=== PATIENT | female | born 1990 | race Caucasian/White ===

== ENCOUNTER 2018-05-12 15:48 | Emergency (ER) | payer BC, OTHER ==
--- NOTE | 2018-05-12 16:24 | UC ---
Complaint Female HPI - HPI Summary HPI Summary: 27 y/o female presents to the urgent care c/o b/L pelvic pain w/ urination, LF> RT since this morning. Pt reports she went to the bathroom and urinated and she felt a sudden onset of pelvic pain. Pt w/ PMHX of endometriosis which has been controlled w/ OCP. LMP: 2 years ago due to the OCP. Pt reports about 2 weeks ago she had mild pain and burning on urination, but then it resolved w/ increase hydration. Pain now is 7/10 associated w/ mild chills, pressure and throbbing in character, worse after urination. She took an Ibuprofen PO 800mg around 0900AM which alleviated the pain for a few hrs. Pt has Hx of anxiety. Pt has a mild vaginal discharge, but she thinks it is her normal. Pt denies lower back pain, flank pain, fever, SOB, chest pain, N/V/D. Pt denies Hx of kidney stones or ovarian cysts or STD's. - History Of Current Complaint Chief Complaint: UCGU Stated Complaint: URINARY COMPLAINT Time Seen by Provider: 05/12/18 16:22 Hx Obtained From: Patient Hx Last Menstrual Period: 1-2 YEARS ?: No Onset/Duration: Gradual Onset, Lasting Hours - 10 hrs Timing: Constant Severity Initially: Moderate Severity Currently: Moderate Pain Intensity: 8 Pain Scale Used: 0-10 Numeric Character: Cramping Aggravating Factor(s): Urination Alleviating Factor(s): Meds - Ibuprofen 800mg PO around 0900Am Associated Signs And Symptoms: Negative: Fever, Back Pain, Vaginal Discharge, Nausea, Vomiting(# Of Episodes =), Genital Blisters Related Hx: - 1, Para - 0 - Risk Factors Ectopic Risk Factor: Negative Ovarian Torsion Risk Factor: Negative - Allergies/Home Medications Allergies/Adverse Reactions: Allergies Allergy/AdvReac Type Severity Reaction Status Date / Time azithromycin Allergy Severe Rash Verified 05/12/18 16:18 doxycycline Allergy Severe UNABLE TO Verified 05/12/18 16:18 WALK, RASH PMH/Surg Hx/FS Hx/Imm Hx Previously Healthy: Yes Other GI/ History: Endometriosis Psychological History: Anxiety - Surgical History Surgical History: Yes Surgery Procedure, Year, and Place: Umbilical hernia repair mesh removed . Umbilical hernia repair w/ mesh [facility]. Umbilical hernia repair w/ [id number]-[facility] - Family History Known Family History: Positive: Hypertension - Social History Occupation: Employed Full-time Lives: With Family Alcohol Use: Weekly Alcohol Amount: 1-2 WEEKENDS Substance Use Type: Marijuana Substance Use Comment - Amount & Last Used: MARIJUANA OCCASIONALLY Smoking Status (MU): Former Smoker Amount Used/How Often: 1/2-1 PPD X 7 YEARS Have You Smoked in the Last Year: Yes When Did the Patient Quit Smoking/Using Tobacco: 09/2013 Review of Systems All Other Systems Reviewed And Are Negative: Yes Constitutional: Positive: Negative Skin: Positive: Negative Eyes: Positive: Negative ENT: Positive: Negative Respiratory: Positive: Negative Cardiovascular: Positive: Negative Gastrointestinal: Positive: Negative Genitourinary: Positive: Dysuria, Frequency, Other - B/L pelvic pain. Negative : Vaginal/Penile Discharge, Abnormal Bleeding Motor: Positive: Negative Neurovascular: Positive: Negative Musculoskeletal: Positive: Negative Neurological: Positive: Negative Psychological: Positive: Negative Is Patient Immunocompromised?: No Physical Exam - Summary Physical Exam Summary: Vital signs: reviewed General: well developed, well nourished female sitting in the examining table w/o mild pain distress. Head: Normocephalic, no lesions. Eyes: PERRLA, EOM's full, conjunctiva clear, fundi grossly normal. Ears: EAC's clear, TM's normal. Nose: Mucosa normal, no obstruction. Throat: Clear, no exudates, no lesions. Neck: Supple, no masses, no thyromegaly, no bruits. Chest: Lungs clear, no rales, no rhonchi, no wheezes. Heart: RR, no murmurs, no rubs, no gallops. Abdomen Description: Positive: Nontender, Abd: Flat with no distention. No surface trauma, scars, incisions. hyperactive bowel sounds present in all four quadrants. No tenderness, guarding, rigidity to palpation. No masses palpated, no pulsation in epigastric area. No organomegaly. Negative [place] signs. No periumbilical tenderness. No rebound in the lower quadrants. NT over McBurneys point. Left side suprapubic tenderness with no distension. Good femoral pulses bilaterally. No hernia noted. No CVAT bilaterally. Pelvic: I was assisted by Nurse Palacios. External genitalia within normal limits. There is no lesions there is no masses noted. Speculum exam: The vaginal bell are within normal limits w/ cottage cheese and bloody vaginal discharge, no the lesions or rashes. The cervix is closed with mild bleeding. no lesions or masses. There is no CMT's, and left adnexal tenderness and no adnexal masses. Sample sent to Lab for G/C and Affirm panel. Rectal: No lesions, no hemorrhoids, Back: Normal curvature, no tenderness. Extremities: FROM, no deformities, no edema, no erythema. Neuro: Physiological, no localizing findings. Skin: Normal, no rashes, no lesions noted. Triage Information Reviewed: Yes Vital Signs: Initial Vital Signs Temp 99.2 F 05/12/18 16:09 Pulse 110 05/12/18 16:09 Resp 18 05/12/18 16:09 BP 143/85 05/12/18 16:09 Pulse Ox 98 05/12/18 16:09 Complaint Female Dx - Course Course Of Treatment: 27 y/o female presents to the urgent care c/o b/L pelvic pain w/ urination, LF> RT since this morning. Pt reports she went to the bathroom and urinated and she felt a sudden onset of pelvic pain. Pt w/ PMHX of endometriosis which has been controlled w/ OCP. LMP: 2 years ago due to the OCP. Pt reports about 2 weeks ago she had mild pain and burning on urination, but then it resolved w/ increase hydration. Pain now is 7/10 associated w/ mild chills, pressure and throbbing in character, worse after urination. She took an Ibuprofen PO 800mg around 0900AM which alleviated the pain for a few hrs. Pt has Hx of anxiety. Pt has a mild vaginal discharge, but she thinks it is her normal. Pt denies lower back pain, flank pain, fever, SOB, chest pain, N/V/D. Pt denies Hx of kidney stones or ovarian cysts or STD's.Hx obtained. Pt is hemodynamically stable, A& OX3. Pt w/ Left side suprapubic tenderness with no distension and No B/L CVA tenderness on examination. UA: + trace blood. test:negative. Speculum exam: The vaginal bell are within normal limits w/ cottage cheese bloody vaginal discharge, no lesions or rashes. The cervix is closed with mild surrounding erythema, no masses. There is no CMT's, but positive left side andnexal tenderness, no adnexal masses. Sample sent to Lab for G/C, and affirm. Possible Vulvovaginal CPT will be notified of results. Pelvic/ transvaginal US ordered: impression: IMPRESSION: 2.5 CM COMPLEX LEFT OVARIAN CYST AND SMALL AMOUNT OF FREE INTRAPERITONEAL, FLUID. RECOMMEND A FOLLOW-UP PELVIC ULTRASOUND IN 2 MONTHS TIME as per radiologist. Abdominal/pelvic CT ordered to r/o kidney stone or other abdominal abnormality, Impression: Limited noncontrast CT, same left ovarian cyst observed and also small hypodense lesion in the left hepatic lobe not seen in prior study, possible a cyst. Pt given at the clinic Ibuprofen PO by nurse. Pt tolerated well medication and pain decrease. Pt Rx Fluconazole PO, [place] PO and Ibuprofen PO to alleviate symptoms. Results explained to patient and strongly recommended to f/u w/ [facility] Diane in 2-3 days for further management on her Ovarian cyst and Endometriosis. However if pelvic pain worsen despite pain medication to immediately go to the ER for further management. D/c instructions explained. Pt understood and agreed w/ plan of care. Pt left the clinic hemodynamically stabel , A&OX3 - Differential Dx/Diagnosis Differential Diagnosis/HQI/PQRI: Cervicitis, Pelvic Inflammatory Disease, , Renal Colic, Sexually Transmitted Disease, Ureteral Stone, Urinary Tract Infection Provider Diagnosis: Acute pelvic pain, Screening for STD (sexually transmitted disease), Vulvovaginal candidiasis, Ovarian cyst, left, Elevated BP without diagnosis of hypertension Discharge - Sign-Out/Discharge Documenting (check all that apply): Patient Departure - d/c home All imaging exams completed and their final reports reviewed: Yes - Discharge Plan Condition: Stable Disposition: HOME Prescriptions: Fluconazole 150 MG TAB* [Diflucan 150 MG TAB*] 150 mg PO ONCE #1 tablet HYDROcodone/ACETAMIN 5-325 MG* [[place] 5-325 TAB*] 1 tab PO Q8H PRN #9 tab MDD 1g /4hrs-4g/day PRN Reason: Pain Ibuprofen TAB* [Motrin TAB* 800 MG] 800 mg PO Q6H PRN #30 tab PRN Reason: Pain Patient Education Materials: Ovarian Cyst (ED), Yeast Infection (ED) Referrals: Dulce Bhat NP [Primary Care Provider] - 2 Days Ras Diane MD [Medical Doctor] - 2 Days Additional Instructions: 1-Please f/u with [facility] Diane in 2-3 days for further evaluation and treatment on your Left Ovarian cyst and endometriosis. 2- Please take Kal[place] PO as directed or Ibuprofen PO to alleviate pelvic pain since Hx of Endometriosis 3- Please take the fluconazole PO as directed to alleviate vaginal discharge. Please do not take the [place] until tomorrow since there is an interaction w/ the fluconazole. 4- Specimen were sent to lab, if anything abnormal you will receive a call from us for further treatment. 5-If pelvic pain worsen despite taken pain medications please go immediately to the ER for further management 6-Your BP is elevated today. please decrease salt in your diet, monitor BP and if it continues to be elevated please f/u with your PCP for further management. - Billing Disposition and Condition Condition: STABLE Disposition: Home
[2018-05-12] MEDS ORDERED: Ibuprofen TAB* 400 MG PO ONE (16:44)
[2018-05-12 18:14] VITALS: BP 137/78
[2018-05-14 13:16] LABS: Neisseria gonorrhoeae (GC) RNA Negative (Negative)
[2018-05-14 13:36] LABS: Trichomonas vaginalis Result Negative (Negative)
--- NOTE | 2018-05-14 16:25 | UC ---
- Progress Note Progress Note: 05/14/2018 Pelvic swab samples: GC/chlam: negative, T. vaginalis: negative, Negative Jade, negative [place] No change Archana Hutchins PA-C Course/Dx - Diagnoses Provider Diagnoses: Acute pelvic pain, Screening for STD (sexually transmitted disease), Vulvovaginal candidiasis, Ovarian cyst, left, Elevated BP without diagnosis of hypertension Discharge - Sign-Out/Discharge Documenting (check all that apply): Post-Discharge Follow Up All imaging exams completed and their final reports reviewed: Yes - Discharge Plan Condition: Stable Disposition: HOME Prescriptions: Fluconazole 150 MG TAB* [Diflucan 150 MG TAB*] 150 mg PO ONCE #1 tablet HYDROcodone/ACETAMIN 5-325 MG* [[place] 5-325 TAB*] 1 tab PO Q8H PRN #9 tab MDD 1g /4hrs-4g/day PRN Reason: Pain Ibuprofen TAB* [Motrin TAB* 800 MG] 800 mg PO Q6H PRN #30 tab PRN Reason: Pain Patient Education Materials: Ovarian Cyst (ED), Yeast Infection (ED) Referrals: Dulce Bhat NP [Primary Care Provider] - 2 Days Ras Diane MD [Medical Doctor] - 2 Days Additional Instructions: 1-Please f/u with [facility] Diane in 2-3 days for further evaluation and treatment on your Left Ovarian cyst and endometriosis. 2- Please take [place] PO as directed or Ibuprofen PO to alleviate pelvic pain since Hx of Endometriosis 3- Please take the fluconazole PO as directed to alleviate vaginal discharge. Please do not take the [place] until tomorrow since there is an interaction w/ the fluconazole. 4- Specimen were sent to lab, if anything abnormal you will receive a call from us for further treatment. 5-If pelvic pain worsen despite taken pain medications please go immediately to the ER for further management 6-Your BP is elevated today. please decrease salt in your diet, monitor BP and if it continues to be elevated please f/u with your PCP for further management. - Billing Disposition and Condition Condition: STABLE Disposition: Home
== END 2018-05-12 18:20 | disposition home or self-care (01) ==
LOC: UCEAST 15:48
DX: R10.2 Pelvic and perineal pain (principal); B37.3 Candidiasis of vulva and vagina; N83.202 Unspecified ovarian cyst, left side; R03.0 Elevated blood-pressure reading, without diagnosis of hypertension; F41.9 Anxiety disorder, unspecified; N80.9 Endometriosis, unspecified; Z88.3 Allergy status to other anti-infective agents; Z87.891 Personal history of nicotine dependence; Z11.3 Encounter for screening for infections with a predominantly sexual mode of transmission
CPT/HCPCS: 74176; 76830; 81003; 84702; 87480; 87491; 87510; 87591; 87661; 99212; A9270-GY; G0463

== ENCOUNTER 2018-12-29 06:27 | Emergency (ER) | payer BC ==
--- NOTE | 2018-12-29 06:51 | ED ---
Complex/Multi-Sys Presentation - HPI Summary HPI Summary: Pt. is a 28 y.o female who presents to the ER with complaints of possible adverse rxn to medication. Pt. states she was in alcohol rehab about one month ago and was started on trilepta, clonidine, and naltrexone. Pt. states she has been sober for >30 days. Pt. states she has a hx of insomnia and takes Ambien prn. Pt. states she has not slept in 48 hours and has been feeling very anxious. She notes she has been having palpitations as well. Pt. states she stopped taking clonidine because she did not like the way it made her feel. Pt. otherwise denies past medical hx. Sxs are moderate in severity. No current modifying factors. - History Of Current Complaint Chief Complaint: EDAllergicReaction Time Seen by Provider: 12/29/18 06:42 Hx Obtained From: Patient - Allergies/Home Medications Allergies/Adverse Reactions: Allergies Allergy/AdvReac Type Severity Reaction Status Date / Time azithromycin Allergy Severe Rash Verified 12/29/18 06:30 doxycycline Allergy Severe UNABLE TO Verified 12/29/18 06:30 WALK, RASH Home Medications: Home Medications Naltrexone TAB* 50 mg PO DAILY 12/29/18 [History Confirmed 12/29/18] OXcarbazepine [Oxcarbazepine] 1 tab PO BID 12/29/18 [History Confirmed 12/29/18] cloNIDine TAB* [Catapres 0.1 MG TAB*] 0.2 mg PO BID 12/29/18 [History Confirmed 12/29/18] PMH/Surg Hx/FS Hx/Imm Hx Previously Healthy: Yes Endocrine/Hematology History: Denies: Hx Diabetes Cardiovascular History: Denies: Hx Congestive Heart Failure, Hx Hypertension History: Denies: Hx Renal Disease Sensory History: Reports: Hx Contacts or Glasses - GLASSES Denies: Hx Hearing Aid Opthamlomology History: Reports: Hx Contacts or Glasses - GLASSES Psychiatric History: Reports: Hx Anxiety - ANXIETY DISORDER - Surgical History Surgery Procedure, Year, and Place: Umbilical hernia repair mesh removed . Umbilical hernia repair w/ mesh 2011-[facility]. Umbilical hernia repair w/ [id number]-[facility] Hx Anesthesia Reactions: Yes - NAUSEA AND VOMITING- MOTION SICKNESS - Immunization History Date of Tetanus Vaccine: unk Date of Influenza Vaccine: fall 2017 Infectious Disease History: No Infectious Disease History: Denies: Traveled Outside the [place] in Last 30 Days - Family History Known Family History: Positive: Hypertension - Social History Occupation: Unemployed Lives: With Family Alcohol Use: Weekly Alcohol Amount: 1-2 WEEKENDS Substance Use Type: Reports: Marijuana Substance Use Comment - Amount & Last Used: MARIJUANA OCCASIONALLY Smoking Status (MU): Former Smoker Amount Used/How Often: 1/2-1 PPD X 7 YEARS Have You Smoked in the Last Year: Yes Review of Systems Constitutional: Negative Negative: Fever, Chills Eyes: Negative Positive: Palpitations Respiratory: Negative Gastrointestinal: Negative Genitourinary: Negative Musculoskeletal: Negative Skin: Negative Neurological: Negative Positive: Anxious All Other Systems Reviewed And Are Negative: Yes Physical Exam Triage Information Reviewed: Yes Vital Signs On Initial Exam: Initial Vitals Temp Pulse Resp BP Pulse Ox 99.5 F 111 15 132/97 98 12/29/18 06:28 12/29/18 06:28 12/29/18 06:28 12/29/18 06:28 12/29/18 06:28 Vital Signs Reviewed: Yes Appearance: Positive: Well-Nourished - Pt. sitting up in bed, appears anxious but nontoxic. Mother present. Skin: Positive: Warm, Dry Head/Face: Positive: Normal Head/Face Inspection Eyes: Positive: Normal, EOMI, WENDI Neck: Positive: Supple Respiratory/Lung Sounds: Positive: Clear to Auscultation, Breath Sounds Present Cardiovascular: Positive: Normal, RRR. Negative: Murmur Abdomen Description: Positive: Nontender, Soft Musculoskeletal: Positive: Normal, Strength/ROM Intact Neurological: Positive: Normal, CN Intact II-III Psychiatric: Positive: Anxious Procedures - Sedation Patient Received Moderate/Deep Sedation with Procedure: No Diagnostics - Vital Signs Vital Signs Temp Pulse Resp BP Pulse Ox 12/29/18 06:28 99.5 F 111 15 132/97 98 - Laboratory Result Diagrams: 12/29/18 07:19 12/29/18 07:19 Lab Statement: Any lab studies that have been ordered have been reviewed, and results considered in the medical decision making process. Complex Multi-Symp Course/Dx Course Of Treatment: Pt. with complaints of insomnia and palpitations. She is afebrile with stable VS. Hydroxyzine give for anxiety. Basic labs and u/a ordered. ECG done at 0715 shows a sinus rhythm of 85bpm, normal axis, no ST elevation or depression. Blood work is unremarkable including negative and normal TSH. U/A negative for infection. On re-exam pt. resting comfortably. She state she is still feeling anxious but palpitations have improved. Pt. notes she is rx atarax by her PCP. Pt.'s sxs could possibly from her new medications. Pt. comfortable with dc home. To call her psychiatrist today for a close f.u apt. to discuss medications. To return to ER if sxs change or worsen. - Diagnoses Provider Diagnoses: Insomnia, Palpitations Discharge ED - Sign-Out/Discharge Documenting (check all that apply): Patient Departure - Discharge Plan Condition: Good Disposition: HOME Patient Education Materials: Insomnia (ED) Referrals: Dulce Bhat NP [Primary Care Provider] - Additional Instructions: Call your psychiatrist today to schedule a follow up appointment within 1-2 days and to discuss your medication Continue prescribed medications as directed Can take your prescribed hydroxyzine every 6 hours as prescribed Return to ER if symptoms change or worse - Billing Disposition and Condition Condition: GOOD Disposition: Home
[2018-12-29] MEDS ORDERED: hydrOXYzine HCL TAB* 50 MG PO ONE (06:53)
[2018-12-29 07:25] LABS: ABS Lymphocytes 1.2 10^3/ul (1.0-4.8); ABS Monocytes 0.4 10^3/ul (0-0.8); ABS Neutrophils 7.1 10^3/ul (1.5-7.7); Eosinophil % 0.1 %; Hematocrit 40 % (35-47); Hemoglobin 13.9 g/dL (12.0-16.0); Lymphocyte % 14.1 %; Mean Corpuscular HGB Conc 35 g/dL (31-36); Mean Corpuscular Hemoglobin 33 pg (27-31); Mean Corpuscular Volume 94 fL (80-97); Mean Platelet Volume 6.9 fL (7.4-10.4); Platelet Count 322 10^3/uL (150-450); Red Blood Count 4.26 10^6 /uL (3.70-4.87); Red Cell Distribution Width 12 % (10-15); White Blood Count 8.7 10^3/uL (3.5-10.8)
[2018-12-29 07:43] LABS: ALT 9 U/L (7-52); AST 12 U/L (13-39); Albumin 4.8 g/dL (3.2-5.2); Albumin/Globulin Ratio 1.7 (1-3); Alkaline Phosphatase 52 U/L (34-104); Anion Gap 7 mmol/L (2-11); BUN/Creatinine Ratio 8.8 (8-20); Blood Urea Nitrogen 5 mg/dL (6-24); CO2 Carbon Dioxide 25 mmol/L (22-32); Calcium 9.5 mg/dL (8.6-10.3); Chloride 105 mmol/L (101-111); EGFR African American 151.7 (>60); EGFR Non-African American 125.4 (>60); Globulin 2.8 g/dL (2-4); Glucose 104 mg/dL (70-100); Magnesium 1.9 mg/dL (1.9-2.7); Potassium 3.7 mmol/L (3.5-5.0); Sodium 137 mmol/L (135-145); Total Protein 7.6 g/dL (6.4-8.9)
[2018-12-29 07:50] LABS: HCG Pregnancy < 0.60 mIU/mL
[2018-12-29 08:07] LABS: Urine Appearance Clear; Urine Color Straw; Urine Specific Gravity 1.005 (1.010-1.030)
[2018-12-29 08:08] LABS: Urine Bilirubin Negative (Negative); Urine Blood Negative (Negative); Urine Glucose Negative (Negative); Urine Ketones 1+ (Negative); Urine Nitrite Negative (Negative); Urine Protein Negative (Negative); Urine Urobilinogen Negative (Negative)
[2018-12-29 08:38] LABS: TSH (Thyroid Stimulating Horm) 1.81 mcIU/mL (0.34-5.60)
[2018-12-29 09:28] VITALS: BP 128/86
== END 2018-12-29 09:25 | disposition home or self-care (01) ==
LOC: ED 06:27
DX: G47.00 Insomnia, unspecified (principal); R00.2 Palpitations; Z87.891 Personal history of nicotine dependence; F41.9 Anxiety disorder, unspecified; Z79.899 Other long term (current) drug therapy
CPT/HCPCS: 36415; 80053; 81003; 83735; 84443; 84702; 85025; 93005; 99282; A9270-GY

== ENCOUNTER 2019-07-16 18:06 | Observation (INO) ==
[2019-07-16] MEDS ORDERED: NS 0.9% 1000 ml BAG 1,000 ML IV ONE (20:17)
[2019-07-16 21:32] LABS: ABS Lymphocytes 1.2 10^3/ul (1.0-4.8); ABS Monocytes 0.3 10^3/ul (0-0.8); Eosinophil % 0.9 %; Hematocrit 36 % (35-47); Hemoglobin 12.8 g/dL (12.0-16.0); Lymphocyte % 21.3 %; Mean Corpuscular HGB Conc 36 g/dL (31-36); Mean Corpuscular Hemoglobin 33 pg (27-31); Mean Corpuscular Volume 93 fL (80-97); Mean Platelet Volume 6.2 fL (7.4-10.4); Platelet Count 329 10^3/uL (150-450); Red Blood Count 3.84 10^6 /uL (3.70-4.87); Red Cell Distribution Width 12 % (10-15); White Blood Count 5.6 10^3/uL (3.5-10.8)
[2019-07-16 21:33] LABS: Urine Appearance Turbid; Urine Bilirubin Negative (Negative); Urine Blood Negative (Negative); Urine Color Yellow; Urine Glucose Negative (Negative); Urine Ketones Negative (Negative); Urine Nitrite Negative (Negative); Urine Protein Negative (Negative); Urine Specific Gravity 1.011 (1.010-1.030); Urine Urobilinogen Negative (Negative)
[2019-07-16 21:49] LABS: ALT 9 U/L (7-52); AST 15 U/L (13-39); Albumin/Globulin Ratio 2.1 (1-3); Alkaline Phosphatase 57 U/L (34-104); Anion Gap 7 mmol/L (2-11); BUN/Creatinine Ratio 10.6 (8-20); Blood Urea Nitrogen 5 mg/dL (6-24); CO2 Carbon Dioxide 27 mmol/L (22-32); Calcium 9.1 mg/dL (8.6-10.3); Chloride 92 mmol/L (101-111); EGFR African American 189.6 (>60); EGFR Non-African American 156.7 (>60); Globulin 2.4 g/dL (2-4); Glucose 94 mg/dL (70-100); Magnesium 1.9 mg/dL (1.9-2.7); Sodium 126 mmol/L (135-145); Total Protein 7.4 g/dL (6.4-8.9)
[2019-07-16 21:54] LABS: HCG Pregnancy < 0.60 mIU/mL
[2019-07-16 22:28] LABS: TSH (Thyroid Stimulating Horm) 3.35 mcIU/mL (0.34-5.60)
[2019-07-16 22:57] LABS: C Reactive Protein < 1.00 mg/L (<8.01)
[2019-07-17] MEDS ORDERED: NS 0.9% 1000 ml BAG 1,000 ML IV SCH (00:15)
[2019-07-17] MEDS: CMCS: Doxepin 25 mg CAP (NF) PO SCH ×2 (01:11→21:02)
[2019-07-17] MEDS: OXcarbazepine 300 mg TAB (*) PO SCH ×3 (01:27→14:09)
[2019-07-17] MEDS ORDERED: OXcarbazepine 300 mg TAB (*) PO SCH (09:00)
[2019-07-17 13:40] LABS: BUN/Creatinine Ratio 8.9 (8-20); Calcium 8.8 mg/dL (8.6-10.3); EGFR African American 199.3 (>60); EGFR Non-African American 164.7 (>60); Potassium 3.9 mmol/L (3.5-5.0)
[2019-07-18 06:12] LABS: BUN/Creatinine Ratio 11.5 (8-20); Calcium 9.4 mg/dL (8.6-10.3); EGFR African American 168.7 (>60); EGFR Non-African American 139.4 (>60); Potassium 3.9 mmol/L (3.5-5.0)
[2019-07-18 14:16] VITALS: BP 110/68
== END 2019-07-18 14:50 | disposition home or self-care (01) ==
LOC: MED 18:06 → ED 18:06
PROVIDERS: ADMIT Internal Medicine; ATTEND Hospitalist